=== PATIENT | female | born 1990 | race Caucasian/White ===

== ENCOUNTER 2022-05-28 14:44 | Outpatient (CLI) | payer MEDICAID, SELFPAY | END 2022-05-28 14:45 | disposition home or self-care (01) | PROVIDERS: Visit Provider Registered Nurse | DX: T74.21XA Adult sexual abuse, confirmed, initial encounter (principal) | CPT/HCPCS: 82565; 84450; 84460; 86703; 86706; 86803; 87340 ==

== ENCOUNTER 2022-06-11 14:54 | Outpatient (CLI) | payer MEDICAID, SELFPAY ==
[2022-06-11 19:00] LABS: Chlamydia DNA Amplified* NOT DETECTED (No Detected); GC DNA Amplified* NOT DETECTED (No Detected)
== END 2022-06-11 14:55 | disposition home or self-care (01) ==
LOC: NFLDREF 14:56
PROVIDERS: Visit Provider Registered Nurse
DX: Z11.3 Encounter for screening for infections with a predominantly sexual mode of transmission (principal)
CPT/HCPCS: 0353U